=== PATIENT | female | born 1975 | race Caucasian/White ===

== ENCOUNTER 2016-09-05 21:12 | Emergency (ER) | payer OTHER ==
[~2016-09-05] VITALS: Ht 160 cm; Wt 55.5 kg
[2016-09-05 21:15] VITALS: BP 144/88; PULSE 91; RESP 16; O2SAT 99
--- NOTE | 2016-09-05 22:58 | ED.REPORT ---
HPI-Hand Prob/Inj Date of Service Sep 05, 2016 ED Provider: Dr. Ryder Ayala D.O. A healthy 41 year old female presents to the ED with a right middle finger laceration after slamming her hand in a car door two hours prior to arrival. Her pain is throbbing in nature. The wound initially bled briskly, but this has now resolved. Since onset the patient has been icing her finger and applying pressure, with some relief. Nursing Notes Stated Complaint: CUT FINGER Chief Complaint: Laceration Nursing Notes Reviewed: Yes Allergies: Coded Allergies: codeine (Verified Allergy, Mild, memory loss, 09/05/16) Uncoded Allergies: PENICILLIN (Allergy, Mild, rash, 09/05/16) General Time Seen by Provider: 22:57 Chief Complaint Finger injury right Hx Obtained From: Patient Arrived By: Walk-in Onset Occurred: 1 - 4 hours ago Symptom Duration: Since onset Progression Since Onset: Gradually improving Caused by: Crushing injury Location: Right Hand: : Distal phalanx... (Middle) Quality: Painful, Throbbing Severity: Current: Moderate Severity: Maximum: Moderate Associated with: Denies: Fever Relieved by: Ice Immunizations: Tetanus up to date Recent Healthcare: No recent doctor visit Past Medical History Past Medical History Healthy Past Surgical History None reported Smoking History Unknown if Ever Smoker Ambulatory Status Independent Review of Systems Review of Systems Note: + laceration to right middle finger Constitutional: Denies: Fever Musculoskeletal: Reports: Extremity pain (Right third finger) Complete sys rev & neg: except as marked. Respiratory: Denies: Non-productive cough, Shortness of breath GI: Denies: Vomiting Physical Exam Initial Vital Signs Vital Signs (First) Date Time Temp Pulse Resp B/P Pulse Ox O2 Delivery O2 Flow Rate FiO2 09/05/16 21:15 36.4 91 16 144/88 99 Room Air Initial VS: Reviewed Head / Eyes: Atraumatic, Normocephalic ENT: Conjunctiva normal, No scleral icterus Neck: Supple, Full range of motion Skin: Warm, Dry, No cyanosis Neurologic: Alert, Oriented, Nonfocal Psychiatric: Mood/affect normal, Behavior normal, Normal thought content Wrist / Hand: Neurologic intact, Vascular intact Trauma / Burn / Environmental: Positive: Laceration (1.5 cm over radial aspect of distal phalanx of the third digit on right hand ) General/Constitutional: Awake, Alert Interpretation & Diagnostics X-Ray Interpretation Xray Interpretation: Small tuft fracture of distal phalynx of right middle finger Study Performed: 2 View X-Ray Ordered: Hand right Interpretation / Wet Read by: Interpret - Radiologist Procedures Laceration Management Time: 00:07 Procedure Performed by: ED physician Consent / Setup / Site Prep: Consent from patient, Time-out performed, Hand hygiene observed, Stand sterile technique Location of Wound: 1.5 cm to distal, radial aspect of right middle finger Local Anesthesia: Lidocaine 1% Wound Preparation: Betadine Irrigation: Copious Repair Skin: ___ O (5), Nylon # Sutures - Skin: 4 Suture Technique: Simple Post-Procedure / Complications: Dressing applied, No complications, Condition improved, Tolerated procedure well, Patient stable Splint Post-Applic Eval Splint Post-Application Eval: Tube gauze splint applied by ED electronics maintenance technician Extremity Condition: Cap refill < 2 sec, Distal sensation intact, Distal motor Intact, No compartment syndrome Re-Eval/Medical Decision Med Decision/Clinical Course Small tuft fracture that does not communicate with the wound. Wound was carefully irrigated and cleansed and closed in a meticulous sterile technique. She will be placed on antibiotics. Finger splinted. Close outpatient follow- up. Routine opiate warnings were given. Orthopedic referral given. Chose doxycycline because she is allergic to cephalosporins as well as penicillin. Evidently she developed a fever after getting some Keflex. Doxycycline should have good skin urmila coverage. Re-Evaluation/Progress : Time of Eval: 00:07 Patient Status: Condition improved Re-Evaluation/Progress Note: Laceration repair performed. Discussed with patient x-ray results, diagnosis, and plan for discharge. Follow-up and return to the ER instructions given. Patient agrees with plan for care and all questions were addressed. Counseled Regarding: Diagnosis, Need for follow-up, When/why to return to ED Discharge & Departure Primary Impression: Laceration Additional Impression: Fracture, finger, distal phalanx Encounter type: initial encounter Finger: middle finger Fracture type: closed Fracture alignment: nondisplaced Laterality: right Qualified Code: S62.662A - Nondisplaced fracture of distal phalanx of right middle finger, initial encounter for closed fracture Disposition: Home Discharge Condition All VS Reviewed: Yes Condition: Improved Patient Instructions: Finger Fracture (ED), Finger Laceration (ED) Additional Instructions: You have a small tuft fracture of the distal phalanx of your finger. This is going to heal over a 2-4 week period. The laceration takes about a week to heal. Wear the tube gauze over the weekend. Have a wound check on Friday. If all is well then apply a bandage over the wound and wear the finger aluminum splint to protect the fracture. Set up a follow-up with your primary care or with orthopedics in the [place] area. Your may also follow-up with referral orthopod in [place]. Take 1-2 [place] every 6 hours as needed for severe pain. Take doxycycline twice daily for 5 days to prevent infection. Signs of infection: Pain, redness, swelling or discharge. Be seen right away if any of these occur. Do not drive or drink alcohol or consume acetaminophen while taking the [place]. Do not hesitate to return if any problems or any worsening symptoms. Referrals: OTHER,PHYSICIAN (PCP) Cricket Ingram DO [facility] Scribe Attestation Portions of this note were transcribed by Kanwal Chou. I, Dr. Ayala, personally performed the history, physical exam, and medical decision-making; I reviewed and confirmed the accuracy of the information in the transcribed note. Signed by: Megan Peralta, 09/06/2016, 01:28 copies to: Cricket Ingram DO; [facility] James Brown MD Sep 05, 2016 22:58 KANWAL CHOU Sep 05, 2016 23:13 Ryder Ayala DO Sep 06, 2016 00:15
[2016-09-06] MEDS ORDERED: _HYDROcodone/APAP 5-325 mg Tablet PO PRN (00:15)
--- NOTE | 2016-09-06 09:09 | DRSVH ---
PROCEDURE: X-RAY FINGERS, TWO VIEWS INDICATIONS: crush injury, lac to 3rd digit distal phalynx TECHNIQUE: AP hand, 2 views of the third finger(s) acquired. COMPARISON: None. FINDINGS: Bones: No fractures or dislocations. No suspicious bony lesions. Soft tissues: No suspicious soft tissue calcifications. IMPRESSION: No displaced fracture seen. If there is continued pain, followup exam or additional joann ging such as MRI or CT could be performed for further assessment. Dictated by: Hector Melgar [facility] Interpreted: Vin Summers MD on 09/06/2016 at 9:09 Transcribed by: LIBERTAD on 09/06/2016 at 9:09 Approved by: Vin Summers M.D. on 09/06/2016 at 13:27
== END 2016-09-06 00:49 | disposition home or self-care (01) ==
LOC: SED 21:12
DX: S62.662A Nondisplaced fracture of distal phalanx of right middle finger, initial encounter for closed fracture (principal); S61.212A Laceration without foreign body of right middle finger without damage to nail, initial encounter; W23.0XXA Caught, crushed, jammed, or pinched between moving objects, initial encounter; Y92.810 Car as the place of occurrence of the external cause; Y93.89 Activity, other specified; Y99.8 Other external cause status; Z88.0 Allergy status to penicillin; Z88.5 Allergy status to narcotic agent